=== PATIENT | female | born 1990 | race Caucasian/White ===

== ENCOUNTER → 2016-12-27 | Outpatient (CLI) | payer OTHER ==
[2016-12-29 14:50] LABS: CHLAMYDIA TRACH RNA*** NOT DETECTED (NOT DETECTED); GC (NEIS GONORRHOEAE)RNA** NOT DETECTED (NOT DETECTED)
== END | disposition home or self-care (01) ==
LOC: C.LABSPEC 17:37
PROVIDERS: ATTEND Obstetrics & Gynecology
DX: Z12.4 Encounter for screening for malignant neoplasm of cervix (principal)

== ENCOUNTER → 2016-12-27 | Outpatient (CLI) | payer OTHER | END | disposition home or self-care (01) | LOC: C.LAB1850 16:22 | PROVIDERS: ATTEND Obstetrics & Gynecology | DX: Z86.14 Personal history of Methicillin resistant Staphylococcus aureus infection (principal) ==

== ENCOUNTER → 2017-01-03 | Outpatient (CLI) | payer OTHER | END | disposition home or self-care (01) | LOC: C.LAB1850 15:54 | PROVIDERS: ATTEND Obstetrics & Gynecology | DX: Z86.14 Personal history of Methicillin resistant Staphylococcus aureus infection (principal) ==

== ENCOUNTER → 2017-04-24 | Outpatient (CLI) | payer OTHER | END | disposition home or self-care (01) | LOC: C.LABSPEC 17:32 | PROVIDERS: ATTEND Physician Assistant Medical | DX: S81.801A Unspecified open wound, right lower leg, initial encounter (principal); X58.XXXA Exposure to other specified factors, initial encounter ==

== ENCOUNTER 2019-09-30 08:18 | Inpatient (IN) ==
[2019-09-30] MEDS ORDERED: OXYTOCIN 30 UNITS/500 ML BAG IV PRN ×3 (09:25→17:44)
[2019-09-30] MEDS: LACTATED RINGER'S 1,000 ML IV PRN ×3 (09:32→15:51)
[2019-09-30] MEDS ORDERED: fentaNYL citrate 100 MCG/2 ML VIAL ONE (09:37)
[2019-09-30] MEDS ORDERED: ePHEDrine sulfate 50 MG/ML AMP ONE (09:37)
[2019-09-30] MEDS ORDERED: BUPIVACAINE 0.25% 30 ML VIAL ONE (09:37)
[2019-09-30] MEDS ORDERED: fentaNYL 2MCG/ML ROPIV 1.25MG/ML 100 ML BAG EPI ONE (09:38)
[2019-09-30 09:55] LABS: Hematocrit (blood only) 36.5 % (37-47); Hemoglobin 12.5 g/dL (12.0-16.0); Mean Corpuscular Hemoglobin 29.5 pg (25-34); Mean Corpuscular Volume 86.1 fL (80-100); Mean Platelet Volume 12.7 fL (7.4-10.4); Platelet Count 166 K/uL (130-400); RDW Coefficient of Variation 13.5 % (11.5-14.5); RDW Standard Deviation 42.4 fL (36.4-46.3); Red Blood Count 4.24 M/uL (4.2-5.4); White Blood Count 13.75 K/uL (4.8-10.8)
--- NOTE | 2019-09-30 10:07 | Anesthesiology Consultation ---
Date of Service September 30, 2019 Assessment & Plan Chart Review Chart Review: Acceptable Risk for Surgery, Patient NOT seen in Pre Admission Testing and Acceptable Risk for Labor Epidural ASA ASA2 Proposed Anesthesia Anesthesia Type: Labor Epidural and CSE History Height/Weight Height: 5 ft 7 in Weight: 107.048 kg Allergies Allergy/AdvReac Type Severity Reaction Status Date / Time nickel Allergy Intermediate hives Verified 09/27/19 16:24 Medications Home Medications Medication Instructions Recorded Confirmed Last Taken acetone (urine) test #50 08/01/19 09/27/19 Unknown blood sugar diagnostic #150 08/01/19 09/27/19 Unknown blood-glucose meter #1 08/01/19 09/27/19 Unknown lancets 33 gauge #150 08/01/19 09/27/19 Unknown docusate sodium [Colace] 100 mg PO DAILY 09/30/19 09/30/19 09/29/19 omeprazole magnesium [Prilosec OTC] 20 mg PO DAILY 09/30/19 09/30/19 09/29/19 ondansetron HCl [Zofran] 4 mg PO BID 09/30/19 09/30/19 09/29/19 vit no.[id number] 1 tab PO DAILY 09/30/19 09/30/19 09/29/19 [ Vitamin] Active Medications Generic Name Dose Route Start Last Admin Trade Name Freq PRN Reason Stop Dose Admin Lactated Ringer's 1,000 mls @ 125 mls/hr 09/30/19 09:25 09/30/19 09:32 Lr IV 10/02/19 09:24 999 mls/hr .Q8H PRN Administration L&D Protocol Protocol Past Medical History Medical History Abscess Blood blister Cellulitis of elbow (Inactive) Urinary frequency Exercise / Class Metabolic Activity II 4-5 Yardwork/Stairs/Walk up hill Past Family History Family History Uncle Lung cancer dad's brothers Cancer Grandmother (Maternal) Ovarian cancer Diabetes Father Prostate cancer Aunt Cancer Denies family history of Heart disease Myocardial infarction Breast cancer Colorectal cancer Stroke Past Surgical History Surgical History H/O wisdom tooth extraction No pertinent past surgical history Past Anesthesia History No Hx of Anesthesia Complications and No Family Hx of Anesthesia Complications History of PONV No Hx of PONV and No Hx of Motion Sickness Social History Smoking Status: Never smoker tobacco type: cigarettes Smoking cigarettes per day: 20-40 Hx Alcohol Use: No Hx Substance Use: No Physical Exam Vital Signs Last Vital Signs Temp 37.0 C 09/30/19 09:37 Pulse 78 09/30/19 10:00 Resp 18 09/30/19 09:37 BP 137/80 09/30/19 09:44 Pulse Ox 99 09/30/19 10:00 Testing Laboratory Results 09/30/19 09:42
[2019-09-30 10:12] LABS: Mean Corpuscular Hgb Conc 34.2 g/dL (32-36)
[2019-09-30] MEDS ORDERED: NALOXONE HCL 1 MG in SODIUM CHLORIDE 0.9% 1000ML 1,000 ML IV PRN (10:41)
[2019-09-30] MEDS ORDERED: DiphenhydrAMINE HCL 50 MG/ML VIAL IV PRN (10:41)
[2019-09-30] MEDS ORDERED: ePHEDrine sulfate 50 MG/ML AMP IV PRN (10:41)
[2019-09-30] MEDS ORDERED: ONDANSETRON INJ 2 MG/ML 2 ML VIAL IV PRN (10:41)
[2019-09-30] MEDS ORDERED: NALBUPHINE HCL INJ 10 MG/ML AMP IV PRN (10:41)
[2019-09-30] MEDS ORDERED: PROMETHAZINE HCL 25 MG in SODIUM CHLORIDE 0.9% 50 ML IV PRN (10:41)
[2019-09-30] MEDS ORDERED: fentaNYL 2MCG/ML ROPIV 1.25MG/ML 100 ML BAG EPI PRN (10:41)
[2019-09-30] MEDS ORDERED: NALOXONE HCL 0.4 MG/1 ML VIAL/CARP IV PRN (10:41)
--- NOTE | 2019-09-30 12:57 | Labor Progress Brief Note ---
Date of Service September 30, 2019 Subjective comfortable with epidural Assessment & Plan (1) Diet controlled gestational diabetes mellitus (GDM), antepartum: check blood sugar q 3 hrs. (2) Normal labor: continue current management. arom for thin mec. pitocin if indicated. Anticipate . Admission and Anticipated Discharge Date Admission Date: September 30, 2019 Physical Exam Constitutional: WD/WN, vitals as above Psychiatric: A+Ox3, euthymic affect Genitourinary: cx--8/100/-1 toco--qq4-5 efm--140s with mod variability, accels to 160s, no decels arom--green meconium Results & Data ([facility]) Vital Signs (Past 12 Hours) Vital Signs Temp Pulse Resp BP Pulse Ox 09/30/19 12:50 108 H 100 09/30/19 12:45 73 98 09/30/19 12:41 69 106/57 L 09/30/19 12:40 64 98 09/30/19 12:35 73 98 09/30/19 12:30 75 99 09/30/19 12:26 70 106/58 L 09/30/19 12:25 69 98 09/30/19 12:23 18 09/30/19 12:20 70 100 09/30/19 12:15 100 H 99 09/30/19 12:11 66 105/56 L 09/30/19 12:10 66 99 09/30/19 12:05 68 99 09/30/19 12:00 91 H 100 09/30/19 11:58 72 123/73 09/30/19 11:55 77 98 09/30/19 11:50 71 98 09/30/19 11:45 77 98 09/30/19 11:42 70 121/68 09/30/19 11:40 74 99 09/30/19 11:35 74 98 09/30/19 11:30 77 18 100 09/30/19 11:26 74 114/63 09/30/19 11:25 73 100 09/30/19 11:20 78 100 09/30/19 11:15 77 100 09/30/19 11:11 72 115/65 09/30/19 11:10 84 100 09/30/19 11:05 76 100 09/30/19 11:00 80 100 09/30/19 10:56 78 121/73 06/29/20 10:55 76 100 09/30/19 10:50 99 H 125/65 99 09/30/19 10:45 89 18 115/61 100 09/30/19 10:43 90 18 127/63 09/30/19 10:41 82 18 120/64 09/30/19 10:40 82 99 09/30/19 10:39 90 18 128/66 09/30/19 10:37 98 H 18 129/78 09/30/19 10:35 82 142/69 H 99 09/30/19 10:33 81 128/75 09/30/19 10:30 89 137/71 98 09/30/19 10:25 92 H 99 09/30/19 10:20 86 99 09/30/19 10:15 95 H 98 09/30/19 10:10 82 97 09/30/19 10:05 73 98 09/30/19 10:00 78 18 99 09/30/19 09:55 83 99 09/30/19 09:50 68 97 09/30/19 09:45 75 99 09/30/19 09:44 37.0 C 71 18 137/80 09/30/19 09:40 82 99 09/30/19 09:37 37.0 C 18 09/30/19 09:35 75 98 Coding Level of Care Code None Diagnoses Diet controlled gestational diabetes mellitus (GDM), antepartum O24.410 Normal labor O80; Z37.9
--- NOTE | 2019-09-30 15:38 | History & Physical Report ---
Date of Service September 30, 2019 Assessment & Plan (1) Diet controlled gestational diabetes mellitus (GDM), antepartum: monitor blood sugars q 3 hours. First sugar was ok. (2) 40 weeks gestation of : plan epidural per request. arom/pit as indicated. fetus category 1. anticipate . Admission and Anticipated Discharge Date Admission Date: September 30, 2019 History of Present Illness Chief Complaint: LATE ENTRY Primary Care Provider: Héctor Rivas MD pATIENT IS A 28YOWF g1 who presents to labor and delivery at 40 3/7 weeks for induction for GDM. Patient had a nelson placed last night. Nelson fell out at 1 1pm . contractions started at about 9pm last night. Was 7-9 min apart the whole time. Had emesis all night. no lof. no vb. FM. large ketones and +2 protein. Wants something for pain. Being treated for diet gdm. Last us AC 84% at 36 weeks. Insulin was not started. labs--B+/ab-/ri/rprnr/hepb-/hiv-/gc/ct-/gbs neg/ 16 week gtt 114/ 28 week gtt 136/failed 2 hr./ low risk panorama Allergies Allergy/AdvReac Type Severity Reaction Status Date / Time nickel Allergy Intermediate hives Verified 09/27/19 16:24 Home Medications Home Medications Medication Instructions Recorded Confirmed Type acetone (urine) test #50 ea 08/01/19 09/27/19 Rx blood sugar diagnostic #150 ea 08/01/19 09/27/19 Rx blood-glucose meter #1 ea 08/01/19 09/27/19 Rx lancets 33 gauge #150 08/01/19 09/27/19 Rx docusate sodium [Colace] 100 mg PO DAILY 09/30/19 09/30/19 History omeprazole magnesium [Prilosec OTC] 20 mg PO DAILY 09/30/19 09/30/19 History ondansetron HCl [Zofran] 4 mg PO BID 09/30/19 09/30/19 History vit no.[id number] 1 tab PO DAILY 09/30/19 09/30/19 History [ Vitamin] Patient History Medical History (Updated 09/30/19 @ 15:44 by Merari Machuca MD, FACOG) Abscess Blood blister Cellulitis of elbow (Inactive) MRSA (methicillin resistant Staphylococcus aureus) History of 2014 Urinary frequency Surgical History H/O wisdom tooth extraction No pertinent past surgical history Family History Uncle Lung cancer dad's brothers Cancer Grandmother (Maternal) Ovarian cancer Diabetes Father Prostate cancer Aunt Cancer Denies family history of Heart disease Myocardial infarction Breast cancer Colorectal cancer Stroke Social History Preferred Language: Kuwaiti Communication Ability: Effective Visual Impairment: No Limitations Hearing Ability: Normal Resident Care Spec Required: No Beliefs That Will Affect Care: None marital status: marital status details: Jason Bedoya (27) [phone] Current Living Situation: Spouse Current Living Situation Comment: with spouse and 1 dog current occupational status: employed current occupation: [employer] Other Information That Helps Us Care for You: No Feels Safe at Home: Yes Safety Concerns: Feels Safe At This Time Smoking Status: Never smoker Tobacco Type: cigarettes ; Age Started Using Tobacco: 13 ; Age Quit Using Tobacco: 22 ; packs per day: 1.5 ; Cigarettes Per Day: 20-40 ; Number of Years Since Quit: 6 ; Second Hand Exposure: No ; Hx Alcohol Use: No Hx Substance Use: No Childhood Exposure to Second-Hand Smoke: No caffeine: No Dental Care, Regularly: Yes Physical Activity Frequency: 1-2 Times per Week Seatbelt Use: always Sunscreen Use: Yes OB History g1--current [employer] History no stds, no abnl paps Review of Systems All systems reviewed & are unremarkable except as noted in HPI & below Physical Exam Constitutional: WD/WN, vitals as above Psychiatric: A+Ox3, euthymic affect Genitourinary: cx--6/90/0 toco--q7-9 min efm--category one. Results & Data ([facility]) Vital Signs (Past 12 Hours) Vital Signs Temp Pulse Resp BP Pulse Ox 09/30/19 15:30 85 99 09/30/19 15:26 95 H 99/52 L 09/30/19 15:25 80 98 09/30/19 15:20 84 99 09/30/19 15:15 78 98 09/30/19 15:12 80 106/58 L 09/30/19 15:10 79 99 09/30/19 15:05 84 99 09/30/19 15:00 36.8 C 81 18 100 09/30/19 14:58 85 104/52 L 09/30/19 14:55 92 H 99 09/30/19 14:50 77 99 09/30/19 14:45 74 99 09/30/19 14:41 73 111/52 L 09/30/19 14:40 73 99 09/30/19 14:35 89 99 09/30/19 14:30 83 18 100 09/30/19 14:27 82 107/63 09/30/19 14:25 83 99 09/30/19 14:20 99 H 99 09/30/19 14:15 96 H 98 09/30/19 14:11 87 123/71 09/30/19 14:10 84 98 09/30/19 14:05 92 H 98 09/30/19 14:00 93 H 18 99 09/30/19 13:56 83 120/71 09/30/19 13:55 88 98 09/30/19 13:50 90 98 09/30/19 13:45 85 98 09/30/19 13:42 92 H 124/78 09/30/19 13:40 96 H 100 09/30/19 13:35 78 98 09/30/19 13:30 83 18 98 09/30/19 13:27 79 121/68 09/30/19 13:25 85 98 09/30/19 13:20 84 100 09/30/19 13:15 81 100 09/30/19 13:11 86 130/78 09/30/19 13:10 87 100 09/30/19 13:05 88 100 09/30/19 13:00 37.0 C 84 18 100 09/30/19 12:58 82 127/70 09/30/19 12:55 107 H 100 09/30/19 12:50 108 H 100 09/30/19 12:45 73 98 09/30/19 12:41 69 106/57 L 09/30/19 12:40 64 98 09/30/19 12:35 73 98 09/30/19 12:30 75 18 99 09/30/19 12:26 70 106/58 L 09/30/19 12:25 69 98 09/30/19 12:23 18 09/30/19 12:20 70 100 09/30/19 12:15 100 H 99 09/30/19 12:11 66 105/56 L 09/30/19 12:10 66 99 09/30/19 12:05 68 99 09/30/19 12:00 91 H 18 100 09/30/19 11:58 72 123/73 09/30/19 11:55 77 98 09/30/19 11:50 71 98 09/30/19 11:45 77 98 09/30/19 11:42 70 121/68 09/30/19 11:40 74 99 09/30/19 11:35 74 98 09/30/19 11:30 77 18 100 09/30/19 11:26 74 114/63 09/30/19 11:25 73 100 09/30/19 11:20 78 100 09/30/19 11:15 77 100 09/30/19 11:11 72 115/65 09/30/19 11:10 84 100 09/30/19 11:05 76 100 09/30/19 11:00 80 100 09/30/19 10:56 78 121/73 09/30/19 10:55 76 100 09/30/19 10:50 99 H 125/65 99 09/30/19 10:45 89 18 115/61 100 09/30/19 10:43 90 18 127/63 09/30/19 10:41 82 18 120/64 09/30/19 10:40 82 99 09/30/19 10:39 90 18 128/66 09/30/19 10:37 98 H 18 129/78 09/30/19 10:35 82 142/69 H 99 09/30/19 10:33 81 128/75 09/30/19 10:30 89 137/71 98 09/30/19 10:25 92 H 99 09/30/19 10:20 86 99 09/30/19 10:15 95 H 98 09/30/19 10:10 82 97 09/30/19 10:05 73 98 09/30/19 10:00 78 18 99 09/30/19 09:55 83 99 09/30/19 09:50 68 97 09/30/19 09:45 75 99 09/30/19 09:44 37.0 C 71 18 137/80 09/30/19 09:40 82 99 09/30/19 09:37 37.0 C 18 09/30/19 09:35 75 98 Coding Level of Care Code None Diagnoses Diet controlled gestational diabetes mellitus (GDM), antepartum O24.410 40 weeks gestation of Z3A.40
[2019-09-30] MEDS ORDERED: ACETAMINOPHEN 325 MG TAB PO PRN (17:15)
[2019-09-30] MEDS ORDERED: OXYCODONE/ACETAMINOPHEN 5mg/325mg TAB PO PRN (17:15)
--- NOTE | 2019-09-30 17:19 | Delivery Summary ---
Vaginal Delivery Summary Date of Service September 30, 2019 Vaginal Delivery Summary Pre-operative Diagnosis: at 40 weeks diet controlled gdm Post-operative Diagnosis: same meconium Procedure: nelson bulb for cervical ripening epidural arom pitocin augementation second degree laceration and repair EBL: 350cc Anesthesia: epidural Procedure: The patient pushed for 40 min to deliver a viable female in virginie position. The rest of the infant was then delivered without difficulty. The baby was vigorous. The nose and mouth were bulb suctioned and the infant was placed in the maternal abdomen for drying and attention. Cord was clamped and cut at one minute of life. Cord blood and segment obtained. Placenta delivered spontaneous, intact with a three vessel cord. Cervix/sulci/rectum were intact. A second degree perineal laceration was repaired in the normal standard fashion. Hemostasis obtained with dilute pitocin and fundal massage. Apgars were 8/9. Mother and baby doing well at the end of the delivery.
[2019-09-30] MEDS ORDERED: bisacodyL 10 MG SUPP PR PRN (17:44)
[2019-09-30] MEDS ORDERED: DIPHTHERIA/TETANUS/PERTUSSIS 0.5 ML SYR/VIAL IM ONE (17:44)
[2019-09-30] MEDS ORDERED: SUPERCREAM 0.870% 15 GM JAR EXT PRN (17:44)
[2019-09-30] MEDS ORDERED: HYDROCORTISONE ACETATE 25 MG SUPP PR PRN (17:44)
[2019-09-30] MEDS ORDERED: BENZOCAINE 20% AER SPR 82.5 GM CAN EXT PRN (17:44)
--- NOTE | 2019-09-30 18:17 | Anesthesiology Progress Note ---
Date of Service September 30, 2019 Anesthesia Post Procedure Vital Signs Vital Signs: Temp Pulse Resp BP Pulse Ox 09/30/19 18:11 84 122/62 09/30/19 18:00 18 09/30/19 17:56 90 124/62 09/30/19 17:45 18 09/30/19 17:41 90 127/61 09/30/19 17:30 18 09/30/19 17:26 99 H 128/60 09/30/19 17:15 37.0 C 18 09/30/19 17:11 37.0 C 105 H 132/67 09/30/19 16:58 18 09/30/19 16:55 143 H 89 L 09/30/19 16:50 125 H 98 09/30/19 16:45 106 H 92 09/30/19 16:42 116 H 138/64 09/30/19 16:41 106 H 86 L 09/30/19 16:40 103 H 96 09/30/19 16:35 104 H 100 09/30/19 16:30 103 H 18 100 09/30/19 16:26 107 H 144/79 H 09/30/19 16:25 106 H 100 09/30/19 16:20 106 H 100 09/30/19 16:15 120 H 100 09/30/19 16:10 109 H 100 09/30/19 16:05 82 99 09/30/19 16:00 81 18 100 09/30/19 15:57 79 103/57 L 09/30/19 15:55 88 100 09/30/19 15:50 90 100 09/30/19 15:45 100 H 100 09/30/19 15:41 90 103/60 09/30/19 15:40 87 99 09/30/19 15:35 77 99 09/30/19 15:30 85 18 99 09/30/19 15:26 95 H 99/52 L 09/30/19 15:25 80 98 09/30/19 15:20 84 99 09/30/19 15:15 78 98 09/30/19 15:12 80 106/58 L 09/30/19 15:10 79 99 09/30/19 15:05 84 99 09/30/19 15:00 36.8 C 81 18 100 09/30/19 14:58 85 104/52 L 09/30/19 14:55 92 H 99 09/30/19 14:50 77 99 09/30/19 14:45 74 99 09/30/19 14:41 73 111/52 L 09/30/19 14:40 73 99 09/30/19 14:35 89 99 09/30/19 14:30 83 18 100 09/30/19 14:27 82 107/63 09/30/19 14:25 83 99 09/30/19 14:20 99 H 99 09/30/19 14:15 96 H 98 09/30/19 14:11 87 123/71 09/30/19 14:10 84 98 09/30/19 14:05 92 H 98 09/30/19 14:00 93 H 18 99 09/30/19 13:56 83 120/71 09/30/19 13:55 88 98 09/30/19 13:50 90 98 09/30/19 13:45 85 98 09/30/19 13:42 92 H 124/78 09/30/19 13:40 96 H 100 09/30/19 13:35 78 98 09/30/19 13:30 83 18 98 09/30/19 13:27 79 121/68 09/30/19 13:25 85 98 09/30/19 13:20 84 100 09/30/19 13:15 81 100 09/30/19 13:11 86 130/78 09/30/19 13:10 87 100 09/30/19 13:05 88 100 09/30/19 13:00 37.0 C 84 18 100 09/30/19 12:58 82 127/70 09/30/19 12:55 107 H 100 09/30/19 12:50 108 H 100 09/30/19 12:45 73 98 09/30/19 12:41 69 106/57 L 09/30/19 12:40 64 98 09/30/19 12:35 73 98 09/30/19 12:30 75 18 99 09/30/19 12:26 70 106/58 L 09/30/19 12:25 69 98 09/30/19 12:23 18 09/30/19 12:20 70 100 09/30/19 12:15 100 H 99 09/30/19 12:11 66 105/56 L 09/30/19 12:10 66 99 09/30/19 12:05 68 99 09/30/19 12:00 91 H 18 100 09/30/19 11:58 72 123/73 09/30/19 11:55 77 98 09/30/19 11:50 71 98 09/30/19 11:45 77 98 09/30/19 11:42 70 121/68 09/30/19 11:40 74 99 09/30/19 11:35 74 98 09/30/19 11:30 77 18 100 09/30/19 11:26 74 114/63 09/30/19 11:25 73 100 09/30/19 11:20 78 100 09/30/19 11:15 77 100 09/30/19 11:11 72 115/65 09/30/19 11:10 84 100 09/30/19 11:05 76 100 09/30/19 11:00 80 100 09/30/19 10:56 78 121/73 09/30/19 10:55 76 100 09/30/19 10:50 99 H 125/65 99 09/30/19 10:45 89 18 115/61 100 09/30/19 10:43 90 18 127/63 09/30/19 10:41 82 18 120/64 09/30/19 10:40 82 99 09/30/19 10:39 90 18 128/66 09/30/19 10:37 98 H 18 129/78 09/30/19 10:35 82 142/69 H 99 09/30/19 10:33 81 128/75 09/30/19 10:30 89 137/71 98 09/30/19 10:25 92 H 99 09/30/19 10:20 86 99 09/30/19 10:15 95 H 98 09/30/19 10:10 82 97 09/30/19 10:05 73 98 09/30/19 10:00 78 18 99 09/30/19 09:55 83 99 09/30/19 09:50 68 97 09/30/19 09:45 75 99 09/30/19 09:44 37.0 C 71 18 137/80 09/30/19 09:40 82 99 09/30/19 09:37 37.0 C 18 09/30/19 09:35 75 98 Pain Intensity Abdomen: Pain Intensity: 0 Transfer of Care Handoff Completed per policy Notes Mental Status: alert / awake / arousable Nausea / Vomiting: adequately controlled Pain: adequately controlled Airway Patency, RR, SpO2: stable & adequate BP & HR: stable & adequate Hydration State: stable & adequate Neuraxial Anesthesia: was administered and sensory block is resolving Anesthetic Complications: no major complications apparent Notes: epidural catheter was removed with tip intact
[2019-09-30] MEDS: DOCUSATE SODIUM 100 MG CAP PO SCH (21:14)
[2019-09-30] MEDS: IBUPROFEN 600 MG TAB PO PRN (21:31)
[2019-10-01] MEDS: IBUPROFEN 600 MG TAB PO PRN ×3 (04:46→15:45)
[2019-10-01 06:40] LABS: Hematocrit (blood only) 32.3 % (37-47); Hemoglobin 10.6 g/dL (12.0-16.0)
--- NOTE | 2019-10-01 06:58 | Obstetrical Progress Note ---
Date of Service October 01, 2019 Assessment & Plan (1) Status post vaginal delivery: Doing well. Routine pp care. Subjective Ambulation: ambulating normally Voiding: no voiding problems Passing Gas:: Yes Diet Tolerance:: regular diet Lochia:: Small Feeding Type:: breast feeding Tolerating pain in her bottom. Physical Exam Constitutional WD/WN, vitals as above Gastrointestinal (Abdomen) soft, nt ff/ nt at u Psychiatric A+Ox3, euthymic affect Results & Data ([facility]) Vital Signs (Past 12 Hours) Vital Signs Temp Pulse Resp BP Pulse Ox 10/01/19 04:45 36.5 C 84 17 137/86 99 10/01/19 00:05 36.8 C 71 16 134/84 98 09/30/19 19:30 36.3 C L 94 H 18 120/77 99
[2019-10-01] MEDS: PRENATAL VITAMIN 1 TAB PO SCH (08:28)
[2019-10-01] MEDS: DOCUSATE SODIUM 100 MG CAP PO SCH ×2 (08:28→20:17)
[2019-10-01] MEDS ORDERED: bisacodyL 5 MG TABEC PO ONE (08:34)
[2019-10-01] MEDS: bisacodyL 5 MG TABEC PO SCH ×2 (08:35→20:18)
[2019-10-02] MEDS: IBUPROFEN 600 MG TAB PO PRN ×2 (01:05→08:22)
--- NOTE | 2019-10-02 07:47 | Obstetrical Progress Note ---
Date of Service October 02, 2019 Assessment & Plan (1) Status post vaginal delivery: stable for d/c home, instructions reviewed. f/u 6wks pp check. rh pos, ri. Day #:: 2 Subjective Ambulation: ambulating normally Voiding: no voiding problems Diet Tolerance:: regular diet Lochia:: Small Feeding Type:: bottle feeding denies pain issues. ready to go home Physical Exam Constitutional WD/WN, vitals as above Respiratory normal respiratory effort, lungs clear to auscultation Cardiovascular Rate/Rhythm: regular rate and regular rhythm Gastrointestinal (Abdomen) Percussion/Palpation: abdomen soft; abdomen nontender ff 3 down nt Psychiatric A+Ox3, euthymic affect Results & Data ([facility]) Vital Signs (Past 12 Hours) Vital Signs Temp Pulse Resp BP Pulse Ox 10/01/19 23:50 97.7 F 91 H 20 125/82 99
[2019-10-02] MEDS: DOCUSATE SODIUM 100 MG CAP PO SCH (08:22)
[2019-10-02] MEDS: PRENATAL VITAMIN 1 TAB PO SCH (08:26)
== END 2019-10-02 15:10 | disposition home or self-care (01) | DRG 807 ==
LOC: 4S1 09:04 → 4S2 18:56

== ENCOUNTER 2021-07-01 09:37 | Inpatient (IN) ==
[2021-07-01 10:28] LABS: Basophils # (auto) 0.01 K/uL (0-0.2); Basophils % (auto) 0.1 %; Eosinophils # (auto) 0.02 K/uL (0-0.5); Eosinophils % (auto) 0.2 %; Hematocrit (blood only) 36.3 % (37-47); Hemoglobin 13.2 g/dL (12.0-16.0); Immature Granulocytes # (auto) 0.02 K/uL (0.00-0.02); Immature Granulocytes % (auto) 0.2 %; Lymphocytes # (auto) 1.66 K/uL (1.2-3.4); Lymphocytes % (auto) 18.7 %; Mean Corpuscular Hemoglobin 31.8 pg (25-34); Mean Corpuscular Hgb Conc 36.4 g/dL (32-36); Mean Corpuscular Volume 87.5 fL (80-100); Mean Platelet Volume 12.9 fL (7.4-10.4); Monocytes # (auto) 0.47 K/uL (0.11-0.59); Monocytes % (auto) 5.3 %; Neutrophils # (auto) 6.69 K/uL (1.4-6.5); Neutrophils % (auto) 75.5 %; Platelet Count 133 K/uL (130-400); RDW Coefficient of Variation 12.8 % (11.5-14.5); RDW Standard Deviation 41.1 fL (36.4-46.3); Red Blood Count 4.15 M/uL (4.2-5.4); White Blood Count 8.87 K/uL (4.8-10.8)
[2021-07-01 10:59] LABS: Albumin Globulin Ratio 1.2 (0.9-2); Albumin Level 3.4 gm/dl (3.4-5.0); BUN Creatinine Ratio 25.3 (10-20); Bilirubin,Total 0.2 mg/dl (0.2-1.0); Calcium 9.2 mg/dl (8.5-10.1); Est GFR (African American) 98.8 ml/min; Est GFR (Non-African American) 85.3 ml/min; Globulin 2.9 gm/dl (2.5-4.0); Total Protein 6.3 gm/dl (6.0-8.3)
[2021-07-01 11:15] LABS: Protein Creatinine Ratio Urine 0.2 (0-0.2); Total Protein Urine Random 24.1 mg/dl (0-11.9)
[2021-07-01] MEDS ORDERED: OXYTOCIN 30 UNITS/500 ML BAG IV PRN ×4 (12:11→18:07)
[2021-07-01] MEDS ORDERED: SODIUM CHLORIDE 0.9% 1000ML 1,000 ML IV PRN (12:14)
[2021-07-01] MEDS ORDERED: DEXTROSE 5% 1,000 ML IV PRN (12:14)
[2021-07-01] MEDS ORDERED: DEXTROSE 50% 50 ML SYRINGE IV PRN ×2 (12:14→12:30)
[2021-07-01] MEDS ORDERED: INSULIN REGULAR 250 UNITS in SODIUM CHLORIDE 0.9% 247.5 ML IV PRN (12:14)
--- NOTE | 2021-07-01 12:22 | History & Physical Report ---
Date of Service July 01, 2021 Assessment & Plan (1) 38 weeks gestation of : Plan: Admit, routine labs Epidural with patient request AROM after Anticipate spontaneous vaginal delivery (2) Class 1 obesity due to excess calories in adult: (3) Insulin controlled gestational diabetes mellitus (GDM) in third trimester: Plan: Insulin protocol ordered, every hour glucose checks Didnt take insulin last night Ate pancakes and syrup on way to hospital Last EFW 06/03/2021 2809g 76%tile, AC 95%tile (4) Elevated BP without diagnosis of hypertension: Plan: Elevated blood pressure x2, current blood pressure 135/74. PIH labs within normal limits, protein to creatinine ratio was 0.2 If elevated blood pressures greater than 4 hours apart will meet criteria for gestational hypertension History of Present Illness Chief Complaint: Contractions Primary Care Provider: Héctor Rivas MD Patient is a 30-year-old -0-0-1 at 38 weeks and 6 days dated by last menstrual period consistent with 8-week ultrasound who presents to labor and delivery for complaint of contractions every 10 minutes that have now gotten closer together. Contractions started at 3 AM. Denies leaking of fluid or vaginal bleeding. Notes good movement. Denies headache, blurry vision, right upper quadrant or epigastric pain. Otherwise feeling well. complications include insulin-dependent gestational diabetes controlled with Lantus 10 units before bedtime. Other complications include class I obesity. On presentation patient was noted to have elevated blood pressure x2. PIH labs were normal Patient was 3 cm dilated on presentation, changed to 4 cm after 1 hour. Allergies Allergy/AdvReac Type Severity Reaction Status Date / Time nickel Allergy Intermediate hives Verified 05/21/20 08:51 Home Medications Medication Instructions Recorded Confirmed Type multivitamin with minerals-folic 1 tab PO DAILY 05/08/20 07/01/21 History acid 66.7 mcg-biotin 1,000 mcg tablet (Hair,Skin and Nails (folic acid-biotin)) docusate sodium 100 mg capsule 300 mg PO DAILY 07/01/21 07/01/21 History (Colace) insulin glargine 100 unit/mL 5 unit SUBCUT HS 07/01/21 07/01/21 History subcutaneous solution (Lantus U-100 Insulin) ondansetron HCl 8 mg tablet 8 mg PO Q12H PRN 07/01/21 07/01/21 History Patient History Medical History Diet controlled gestational diabetes mellitus (GDM), antepartum MRSA (methicillin resistant Staphylococcus aureus) History of 2014 Surgical History H/O wisdom tooth extraction Family History Uncle Lung cancer dad's brothers Cancer Grandmother (Maternal) Ovarian cancer Diabetes Father Prostate cancer Aunt Cancer Denies family history of Heart disease Myocardial infarction Breast cancer Colorectal cancer Stroke Social History Smoking Status: Former smoker Age Started Using Tobacco: 13; Age Quit Using Tobacco: 22; packs per day: 1.5; Years Smoked: 10; Cigarettes Per Day: 20-40; Number of Years Since Quit: 6; Second Hand Exposure: No; Hx Alcohol Use: No Hx Substance Use: No Preferred Language: Nepali Communication Ability: Effective Visual Impairment: No Limitations Hearing Ability: Normal College Admissions Counselor Required: No Beliefs That Will Affect Care: None marital status: marital status details: Jason Bedoya (27) [phone] Current Living Situation: Spouse Current Living Situation Comment: with spouse and 1 dog current occupational status: employed current occupation: [employer] [facility] Other Information That Helps Us Care for You: No Feels Safe at Home: Yes Safety Concerns: Feels Safe At This Time Childhood Exposure to Second-Hand Smoke: No caffeine: No Dental Care, Regularly: Yes Physical Activity Frequency: 1-2 Times per Week Seatbelt Use: always Sunscreen Use: Yes Assistive Devices: Glasses OB History Review of Systems All systems reviewed & are unremarkable except as noted in HPI & below Physical Exam Constitutional: WD/WN, vitals as above Respiratory: normal respiratory effort, lungs clear to auscultation Cardiovascular: RRR, no murmur, no edema Gastrointestinal (Abdomen): normal bowel sounds, soft, nontender, no hepatosplenomegaly Genitourinary: OB Exam Abdomen: + fundal height, + heart tones and + vertex Cx 4/80/-2 check by RN Results & Data ([facility]) Vital Signs (Past 12 Hours) Vital Signs Temp Pulse Resp BP 07/01/21 11:59 88 135/74 07/01/21 11:42 78 131/80 07/01/21 11:27 88 129/78 07/01/21 11:14 84 141/86 H 07/01/21 10:57 90 126/79 07/01/21 10:42 103 H 130/88 07/01/21 10:28 100 H 132/87 07/01/21 10:13 93 H 138/91 07/01/21 09:56 37 C 22 07/01/21 09:46 96 H 156/90 H Monitoring External Monitor FHT: baseline 150-155, mod variability, +accels, no decels, cat I Tocodynamometer [place]: q4-5 min
[2021-07-01] MEDS ORDERED: CARBOHYDRATES FOR HYPOGLYCEMIA PO PRN (12:30)
[2021-07-01] MEDS ORDERED: GLUCAGON FOR INJ 1 MG VIAL IM PRN (12:30)
[2021-07-01] MEDS ORDERED: GLUCOSE 40% GEL 15 GM TUBE PO PRN (12:30)
[2021-07-01] MEDS ORDERED: GLUCOSE 10 TABS/TUBE PO PRN (12:30)
[2021-07-01] MEDS: LACTATED RINGER'S 1,000 ML IV PRN ×2 (12:38→15:35)
--- NOTE | 2021-07-01 12:45 | History & Physical Report ---
Date of Service July 01, 2021 Assessment & Plan (1) 38 weeks gestation of : Plan: Admit, routine labs Epidural with patient request AROM after Anticipate spontaneous vaginal delivery (2) Class 1 obesity due to excess calories in adult: (3) Insulin controlled gestational diabetes mellitus (GDM) in third trimester: Plan: Insulin protocol ordered, every hour glucose checks Didnt take insulin last night Ate pancakes and syrup on way to hospital Last EFW 06/03/2021 2809g 76%tile, AC 95%tile (4) Elevated BP without diagnosis of hypertension: Plan: Elevated blood pressure x2, current blood pressure 135/74. PIH labs within normal limits, protein to creatinine ratio was 0.2 If elevated blood pressures greater than 4 hours apart will meet criteria for gestational hypertension Admission and Anticipated Discharge Date Admission Date: July 01, 2021 History of Present Illness Primary Care Provider: Héctor Rivas MD Patient is a 30-year-old -0-0-1 at 38 weeks and 6 days dated by last menstrual period consistent with 8-week ultrasound who presents to labor and delivery for complaint of contractions every 10 minutes that have now gotten closer together. Contractions started at 3 AM. Denies leaking of fluid or vaginal bleeding. Notes good movement. Denies headache, blurry vision, right upper quadrant or epigastric pain. Otherwise feeling well. complications include insulin-dependent gestational diabetes controlled with Lantus 10 units before bedtime. Other complications include class I obesity. On presentation patient was noted to have elevated blood pressure x2. PIH labs were normal Patient was 3 cm dilated on presentation, changed to 4 cm after 1 hour. Allergies Allergy/AdvReac Type Severity Reaction Status Date / Time nickel Allergy Intermediate hives Verified 05/21/20 08:51 Home Medications Medication Instructions Recorded Confirmed Type multivitamin with minerals-folic 1 tab PO DAILY 05/08/20 07/01/21 History acid 66.7 mcg-biotin 1,000 mcg tablet (Hair,Skin and Nails (folic acid-biotin)) docusate sodium 100 mg capsule 300 mg PO DAILY 07/01/21 07/01/21 History (Colace) insulin glargine 100 unit/mL 5 unit SUBCUT HS 07/01/21 07/01/21 History subcutaneous solution (Lantus U-100 Insulin) ondansetron HCl 8 mg tablet 8 mg PO Q12H PRN 07/01/21 07/01/21 History Patient History Medical History Diet controlled gestational diabetes mellitus (GDM), antepartum MRSA (methicillin resistant Staphylococcus aureus) History of 2013 Surgical History H/O wisdom tooth extraction Family History Uncle Lung cancer dad's brothers Cancer Grandmother (Maternal) Ovarian cancer Diabetes Father Prostate cancer Aunt Cancer Denies family history of Heart disease Myocardial infarction Breast cancer Colorectal cancer Stroke Social History Smoking Status: Former smoker Age Started Using Tobacco: 13; Age Quit Using Tobacco: 22; packs per day: 1.5; Years Smoked: 10; Cigarettes Per Day: 20-40; Number of Years Since Quit: 6; Second Hand Exposure: No; Hx Alcohol Use: No Hx Substance Use: No Preferred Language: Tongan Communication Ability: Effective Visual Impairment: No Limitations Hearing Ability: Normal Medicaid Biller Required: No Beliefs That Will Affect Care: None marital status: marital status details: Jason Bedoya (27) [phone] Current Living Situation: Spouse Current Living Situation Comment: with spouse and 1 dog current occupational status: employed 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 Other Information That Helps Us Care for You: No Feels Safe at Home: Yes Safety Concerns: Feels Safe At This Time Childhood Exposure to Second-Hand Smoke: No caffeine: No Dental Care, Regularly: Yes Physical Activity Frequency: 1-2 Times per Week Seatbelt Use: always Sunscreen Use: Yes Assistive Devices: Glasses Physical Exam Constitutional: WD/WN, vitals as above Respiratory: normal respiratory effort, lungs clear to auscultation Cardiovascular: RRR, no murmur, no edema Gastrointestinal (Abdomen): normal bowel sounds, soft, nontender, no hepatosplenomegaly Genitourinary: OB Exam Abdomen: + fundal height, + heart tones and + vertex US bedside-cephalic Results & Data ([facility]) Vital Signs (Past 12 Hours) Vital Signs Temp Pulse Resp BP 07/01/21 11:59 88 135/74 07/01/21 11:42 78 131/80 07/01/21 11:27 88 129/78 07/01/21 11:14 84 141/86 H 07/01/21 10:57 90 126/79 07/01/21 10:42 103 H 130/88 07/01/21 10:28 100 H 132/87 07/01/21 10:13 93 H 138/91 07/01/21 09:56 37 C 22 07/01/21 09:46 96 H 156/90 H Monitoring External Monitor FHT: baseline 150-155, mod variability, +accels, no decels, Cat I tracing Tocodynamometer Q 4-5 min
[2021-07-01] MEDS ORDERED: ePHEDrine sulfate 50 MG/ML AMP ONE (14:54)
[2021-07-01] MEDS ORDERED: fentaNYL citrate 100 MCG/2 ML VIAL ONE (14:54)
[2021-07-01] MEDS ORDERED: fentaNYL 2MCG/ML ROPIVACAINE 1.25MG/ML 100 ML BAG EPI ONE (14:55)
[2021-07-01] MEDS ORDERED: BUPIVACAINE 0.25% 30 ML VIAL ONE (14:55)
[2021-07-01] MEDS ORDERED: SODIUM CHLORIDE 0.9% INJ 10 ML VIAL ONE (14:55)
--- NOTE | 2021-07-01 14:56 | Labor Progress Brief Note ---
Date of Service July 01, 2021 Subjective Doing well, wants epidural after AROM Assessment & Plan (1) 38 weeks gestation of : Plan: Epidural for patient Anticipate spontaneous vaginal delivery (2) Class 1 obesity due to excess calories in adult: (3) Insulin controlled gestational diabetes mellitus (GDM) in third trimester: Plan: Insulin protocol ordered, every hour glucose checks Last EFW 06/03/2021 2809g 76%tile, AC 95%tile (4) Elevated BP without diagnosis of hypertension: Plan: Elevated blood pressure x2, current blood pressure 127/80. PIH labs within normal limits, protein to creatinine ratio was 0.2 If elevated blood pressures greater than 4 hours apart will meet criteria for gestational hypertension Admission and Anticipated Discharge Date Admission Date: July 01, 2021 Physical Exam Physical Exam: FHT:baseline 135, mod variability, +accels, no decles, cat I [place]:q 10 min Cx: /-1 AROM at 1451 moderate clear fluid, no cord felt Results & Data ([facility]) Vital Signs (Past 12 Hours) Vital Signs Temp Pulse Resp BP 07/01/21 14:34 96 H 127/80 07/01/21 13:23 37.0 C 96 H 20 139/81 07/01/21 11:59 88 135/74 07/01/21 11:42 78 131/80 07/01/21 11:27 88 129/78 07/01/21 11:14 84 141/86 H 07/01/21 10:57 90 126/79 07/01/21 10:42 103 H 130/88 07/01/21 10:28 100 H 132/87 07/01/21 10:13 93 H 138/91 07/01/21 09:56 37 C 22 07/01/21 09:46 96 H 156/90 H
--- NOTE | 2021-07-01 15:26 | Anesthesiology Consultation ---
Date of Service July 01, 2021 Assessment & Plan (1) Encounter for pre-operative examination: Chart Review Chart Review: Acceptable Risk for Labor Epidural History Height/Weight Height: 5 ft 8 in Weight: 110.677 kg Allergies Allergy/AdvReac Type Severity Reaction Status Date / Time nickel Allergy Intermediate hives Verified 05/21/20 08:51 Medications Home Medications Medication Instructions Recorded Confirmed Last Taken multivitamin with minerals-folic 1 tab PO DAILY 05/08/20 07/01/21 06/30/21 22:00 acid 66.7 mcg-biotin 1,000 mcg tablet (Hair,Skin and Nails (folic acid-biotin)) docusate sodium 100 mg capsule 300 mg PO DAILY 07/01/21 07/01/21 06/30/21 22:00 (Colace) insulin glargine 100 unit/mL 5 unit SUBCUT HS 07/01/21 07/01/21 06/29/21 22:00 subcutaneous solution (Lantus U-100 Insulin) ondansetron HCl 8 mg tablet 8 mg PO Q12H PRN 07/01/21 07/01/21 07/01/21 08:00 Active Medications Generic Name Dose Route Start Last Admin Trade Name Freq PRN Reason Stop Dose Admin Lactated Ringer's 1,000 mls @ 125 mls/hr 07/01/21 12:11 07/01/21 14:50 Lr IV 07/03/21 12:10 999 mls/hr .Q8H PRN Infusion L&D Protocol Protocol Sodium Chloride 1,000 mls @ 100 mls/hr 07/01/21 12:14 07/01/21 14:21 Nss 1000ml IV 07/31/21 12:13 0 mls/hr .Q10H PRN Infusion BSG 141 mg/dL or above Protocol Dextrose 1,000 mls @ 100 mls/hr 07/01/21 12:14 07/01/21 14:20 D5w IV 07/31/21 12:13 75 mls/hr .Q10H PRN Infusion BSG 180 or below Protocol Insulin Human Regular 250 250 mls @ 1 mls/hr 07/01/21 12:14 07/01/21 15:15 units/ Sodium Chloride IV 07/31/21 12:13 1 units/hr .Q24H PRN 1 mls/hr BSG 80mg/dL or ABOVE Titration Protocol 1 UNITS/HR NPO Last Intake of Fluids Comment: Sips Past Medical History Medical History Diet controlled gestational diabetes mellitus (GDM), antepartum MRSA (methicillin resistant Staphylococcus aureus) History of 2013 Past Family History Family History Uncle Lung cancer dad's brothers Cancer Grandmother (Maternal) Ovarian cancer Diabetes Father Prostate cancer Aunt Cancer Denies family history of Heart disease Myocardial infarction Breast cancer Colorectal cancer Stroke Past Surgical History Surgical History H/O wisdom tooth extraction Social History Smoking Status: Former smoker tobacco type: cigarettes Smoking cigarettes per day: 20-40 Hx Alcohol Use: No Hx Substance Use: No Physical Exam Vital Signs Last Vital Signs Temp 36.6 C 07/01/21 14:54 Pulse 94 H 07/01/21 15:19 Resp 20 07/01/21 14:54 BP 136/83 07/01/21 14:55 Pulse Ox 98 07/01/21 15:19 Testing Laboratory Results 07/01/21 10:13 07/01/21 10:13 Blood Type B Positive 07/01/21 10:16 Antibody Screen NEGATIVE 07/01/21 10:16 07/01/21 07/01/21 07/01/21 15:13 14:15 13:15 POC Glucose 113 H 119 H 142 H 07/01/21 12:35 POC Glucose 145 H
[2021-07-01] MEDS ORDERED: ONDANSETRON INJ 2 MG/ML 2 ML VIAL IV PRN (15:49)
[2021-07-01] MEDS ORDERED: NALOXONE HCL 1 MG in SODIUM CHLORIDE 0.9% 1000ML 1,000 ML IV PRN (15:49)
[2021-07-01] MEDS ORDERED: fentaNYL 2MCG/ML ROPIVACAINE 1.25MG/ML 100 ML BAG EPI PRN (15:49)
[2021-07-01] MEDS ORDERED: ePHEDrine sulfate 50 MG/ML AMP IV PRN (15:49)
[2021-07-01] MEDS ORDERED: NALOXONE HCL 0.4 MG/1 ML VIAL/CARP IV PRN (15:49)
--- NOTE | 2021-07-01 16:51 | Labor Progress Brief Note ---
Date of Service July 01, 2021 Subjective Doing well on epidural Hypotonic uterine contractions Assessment & Plan (1) 38 weeks gestation of : Plan: Start pit for hypotonic uterine contractions Anticipate spontaneous vaginal delivery (2) Class 1 obesity due to excess calories in adult: (3) Insulin controlled gestational diabetes mellitus (GDM) in third trimester: Plan: Insulin protocol ordered, every hour glucose checks Last EFW 06/03/2021 2809g 76%tile, AC 95%tile (4) Elevated BP without diagnosis of hypertension: Plan: Elevated blood pressure x2, current blood pressure 112/71. PIH labs within normal limits, protein to creatinine ratio was 0.2 If elevated blood pressures greater than 4 hours apart will meet criteria for gestational hypertension Admission and Anticipated Discharge Date Admission Date: July 01, 2021 Physical Exam Physical Exam: FHT:baseline 140, mod variability, +accels, no decles, cat I [place]:q 10 min Results & Data ([facility]) Vital Signs (Past 12 Hours) Vital Signs Temp Pulse Resp BP Pulse Ox 07/01/21 16:44 85 96 07/01/21 16:43 93 H 113/71 07/01/21 16:39 82 97 07/01/21 16:38 75 120/67 07/01/21 16:35 94 H 143/60 H 07/01/21 16:34 96 H 97 07/01/21 16:29 94 H 98 07/01/21 16:28 97 H 111/67 07/01/21 16:24 91 H 98 07/01/21 16:23 79 117/71 07/01/21 16:19 94 H 96 07/01/21 16:18 86 110/70 07/01/21 16:14 86 96 07/01/21 16:13 81 109/65 07/01/21 16:11 102 H 105/64 07/01/21 16:09 98 H 97 07/01/21 16:04 85 110/60 97 07/01/21 15:59 97 H 98 07/01/21 15:58 86 123/68 07/01/21 15:54 92 H 98 07/01/21 15:52 93 H 118/66 07/01/21 15:50 87 118/61 07/01/21 15:49 96 H 98 07/01/21 15:48 93 H 121/68 07/01/21 15:46 92 H 129/72 07/01/21 15:44 84 128/71 98 07/01/21 15:43 82 132/73 07/01/21 15:39 95 H 99 07/01/21 15:34 101 H 99 07/01/21 15:29 100 H 100 07/01/21 15:28 98 H 90 07/01/21 15:24 89 98 07/01/21 15:19 94 H 98 07/01/21 14:55 136/83 07/01/21 14:54 36.6 C 20 07/01/21 14:34 96 H 127/80 07/01/21 13:23 37.0 C 96 H 20 139/81 07/01/21 11:59 88 135/74 07/01/21 11:42 78 131/80 07/01/21 11:27 88 129/78 07/01/21 11:14 84 141/86 H 07/01/21 10:57 90 126/79 07/01/21 10:42 103 H 130/88 07/01/21 10:28 100 H 132/87 07/01/21 10:13 93 H 138/91 07/01/21 09:56 37 C 22 07/01/21 09:46 96 H 156/90 H
[2021-07-01] MEDS ORDERED: ACETAMINOPHEN 325 MG TAB PO PRN (18:07)
[2021-07-01] MEDS ORDERED: DIPHTHERIA/TETANUS/PERTUSSIS 0.5 ML SYR/VIAL IM ONE (18:07)
[2021-07-01] MEDS ORDERED: HYDROCORTISONE ACETATE 25 MG SUPP PR PRN (18:07)
[2021-07-01] MEDS ORDERED: bisacodyL 10 MG SUPP PR PRN (18:07)
--- NOTE | 2021-07-01 18:13 | Delivery Summary ---
Vaginal Delivery Summary Date of Service July 01, 2021 Vaginal Delivery Summary Delivery Note History synopsis: Patient is a 30-year-old -0-0-1 at 38 weeks and 6 7 days who presented for contractions. She is found to be in early labor and she changed from 3 to 4 cm within 1 hour. Contractions were painful and patient desired an epidural. Labor Course: After patient was admitted she is found to be unchanged from 4 cm, AROM was performed and patient received an epidural for pain control. Started oxytocin for hypotonic uterine contractions. Called by nursing as patient was noted to be when they went to [facility] cath the patient at approximately 1745. During admission she was on an insulin drip for control of her insulin controlled GDM. Delivery Summary: Patient was placed in the dorsal lithotomy position. She was prepped and draped in the usual sterile fashion. Upon maternal pushing the head was delivered atraumatically followed by the anterior shoulders, posterior shoulders then the remainder of the infants body. The infants mouth and nose were bulb suction below the level of the perineum. A male infant was delivered at 1753, weight pending with APGARS of 8 at 1 minute and 9 at 5 minutes. The umbilical cord was clamped times two and cut after 60 sec of delayed cord clamping. The infant was handed off to the awaiting pediatric staff. Cord blood was obtained. The placenta delivered intact with three vessel cord at 1756. Placenta was sent to pathology. Thirty units of Pitocin were added to the IV fluid and allowed to run freely. Uterine massage was performed until uterus was deemed firm. Upon inspection of the perineum, cervix were intact. Noted periurethral laceration that was hemostatic. Second degree laceration was noted which was repaired with 3-0 Vicryl in the usual fashion. Upon re-inspection the patient was hemostatic. Uterus again massaged and found to be firm. Needle and sponge counts were correct. Patient was stable and allowed to recover in L&D room. Infant was stable and remained in room with mother in the Family Care Unit. EBL 300mls
--- NOTE | 2021-07-01 18:33 | Anesthesia Procedure Note ---
Date of Service July 01, 2021 Anesthesia Post Epidural Note Vital Signs Vital Signs: Temp Pulse Resp BP Pulse Ox 36.7 C 85 18 117/79 94 07/01/21 16:45 07/01/21 18:08 07/01/21 17:30 07/01/21 18:23 07/01/21 17:56 Notes Mental Status: alert / awake / arousable and participated in evaluation Nausea / Vomiting: adequately controlled Pain: adequately controlled Airway Patency, RR, SpO2: stable & adequate BP & HR: stable & adequate Hydration State: stable & adequate Neuraxial Anesthesia: was administered and sensory block is resolving Anesthetic Complications: no major complications apparent Epidural: Removed without complications and With tip intact
[2021-07-01] MEDS: BENZOCAINE 20% AER SPR 82.5 GM CAN EXT PRN (22:19)
[2021-07-01] MEDS: IBUPROFEN 600 MG TAB PO PRN (23:21)
[2021-07-01] MEDS: DOCUSATE SODIUM 100 MG CAP PO SCH (23:22)
[2021-07-02] MEDS: IBUPROFEN 600 MG TAB PO PRN ×3 (03:26→16:40)
[2021-07-02 06:52] LABS: Hematocrit (blood only) 33.3 % (37-47); Hemoglobin 11.4 g/dL (12.0-16.0); Mean Corpuscular Hemoglobin 30.4 pg (25-34); Mean Corpuscular Hgb Conc 34.2 g/dL (32-36); Mean Corpuscular Volume 88.8 fL (80-100); Mean Platelet Volume 12.5 fL (7.4-10.4); Platelet Count 117 K/uL (130-400); RDW Coefficient of Variation 12.8 % (11.5-14.5); RDW Standard Deviation 41.3 fL (36.4-46.3); Red Blood Count 3.75 M/uL (4.2-5.4); White Blood Count 8.08 K/uL (4.8-10.8)
[2021-07-02 06:53] LABS: Platelet Estimate Decreased (Normal)
[2021-07-02] MEDS ORDERED: PRENATAL VITAMIN 1 TAB PO SCH (08:00)
[2021-07-02] MEDS ORDERED: FERROUS SULFATE 325 MG TAB PO SCH (08:00)
[2021-07-02] MEDS: DOCUSATE SODIUM 100 MG CAP PO SCH (08:48)
[2021-07-02] MEDS: BENZOCAINE 20% AER SPR 82.5 GM CAN EXT PRN (09:00)
--- NOTE | 2021-07-02 10:15 | Obstetrical Progress Note ---
Date of Service July 02, 2021 Subjective Ambulation: ambulating normally Voiding: no voiding problems Passing Gas:: Yes Diet Tolerance:: regular diet Lochia:: Small Feeding Type:: breast feeding Current Pain Level(1-10): 0 doing well plans for d/c Physical Exam Constitutional WD/WN, vitals as above abdomen soft no edema neg Leonila's for d/c Results & Data ([facility]) Vital Signs (Past 12 Hours) Vital Signs Temp Pulse Resp BP Pulse Ox 07/02/21 08:15 36.6 C 71 18 129/84 97 07/02/21 03:20 36.7 C 85 16 118/76 95 07/01/21 23:12 36.7 C 89 16 114/76 98 Laboratory Results 07/01/21 07/01/21 07/01/21 10:13 10:13 10:16 WBC 8.87 RBC 4.15 L Hgb 13.2 Hct 36.3 L MCV 87.5 MCH 31.8 MCHC 36.4 H RDW Std Deviation 41.1 RDW Coeff of Mago 12.8 Plt Count 133 MPV 12.9 H Immature Gran % (Auto) 0.2 Neut % (Auto) 75.5 Lymph % (Auto) 18.7 [place] % (Auto) 5.3 Eos % (Auto) 0.2 Baso % (Auto) 0.1 Neut # (Auto) 6.69 H Lymph # (Auto) 1.66 [place] # (Auto) 0.47 Eos # (Auto) 0.02 Baso # (Auto) 0.01 Immature Gran # (Auto) 0.02 Platelet Estimate Sodium 135 L Potassium 4.0 Chloride 106 Carbon Dioxide 19 L Anion Gap 10 BUN 23 Creatinine 0.91 Est Cr Clr Drug Dosing 119.0 Est GFR ( Amer) 98.8 Est GFR (Non-Af Amer) 85.3 BUN/Creatinine Ratio 25.3 H Glucose 147 H POC Glucose Calcium 9.2 Total Bilirubin 0.2 AST 13 ALT 15 Alkaline Phosphatase 107 H Total Protein 6.3 Albumin 3.4 Globulin 2.9 Albumin/Globulin Ratio 1.2 Ur Random Creatinine U Random Total Protein Protein/Creatinin Ratio SARS-CoV-2, RNA, NAAT Blood Type B Positive Antibody Screen NEGATIVE 07/01/21 07/01/21 07/01/21 12:35 13:15 14:15 WBC RBC Hgb Hct MCV MCH MCHC RDW Std Deviation RDW Coeff of Mago Plt Count MPV Immature Gran % (Auto) Neut % (Auto) Lymph % (Auto) [place] % (Auto) Eos % (Auto) Baso % (Auto) Neut # (Auto) Lymph # (Auto) [place] # (Auto) Eos # (Auto) Baso # (Auto) Immature Gran # (Auto) Platelet Estimate Sodium Potassium Chloride Carbon Dioxide Anion Gap BUN Creatinine Est Cr Clr Drug Dosing Est GFR ( Amer) Est GFR (Non-Af Amer) BUN/Creatinine Ratio Glucose POC Glucose 145 H 142 H 119 H Calcium Total Bilirubin AST ALT Alkaline Phosphatase Total Protein Albumin Globulin Albumin/Globulin Ratio Ur Random Creatinine U Random Total Protein Protein/Creatinin Ratio SARS-CoV-2, RNA, NAAT Blood Type Antibody Screen 07/01/21 07/01/21 07/01/21 15:13 16:16 17:16 WBC RBC Hgb Hct MCV MCH MCHC RDW Std Deviation RDW Coeff of Mago Plt Count MPV Immature Gran % (Auto) Neut % (Auto) Lymph % (Auto) [place] % (Auto) Eos % (Auto) Baso % (Auto) Neut # (Auto) Lymph # (Auto) [place] # (Auto) Eos # (Auto) Baso # (Auto) Immature Gran # (Auto) Platelet Estimate Sodium Potassium Chloride Carbon Dioxide Anion Gap BUN Creatinine Est Cr Clr Drug Dosing Est GFR ( Amer) Est GFR (Non-Af Amer) BUN/Creatinine Ratio Glucose POC Glucose 113 H 91 87 Calcium Total Bilirubin AST ALT Alkaline Phosphatase Total Protein Albumin Globulin Albumin/Globulin Ratio Ur Random Creatinine U Random Total Protein Protein/Creatinin Ratio SARS-CoV-2, RNA, NAAT Blood Type Antibody Screen 07/01/21 07/01/21 07/02/21 Unknown Unknown 05:47 WBC 8.08 RBC 3.75 L Hgb 11.4 L Hct 33.3 L MCV 88.8 MCH 30.4 MCHC 34.2 RDW Std Deviation 41.3 RDW Coeff of Mago 12.8 Plt Count 117 L MPV 12.5 H Immature Gran % (Auto) Neut % (Auto) Lymph % (Auto) [place] % (Auto) Eos % (Auto) Baso % (Auto) Neut # (Auto) Lymph # (Auto) [place] # (Auto) Eos # (Auto) Baso # (Auto) Immature Gran # (Auto) Platelet Estimate Decreased L Sodium Potassium Chloride Carbon Dioxide Anion Gap BUN Creatinine Est Cr Clr Drug Dosing Est GFR ( Amer) Est GFR (Non-Af Amer) BUN/Creatinine Ratio Glucose POC Glucose Calcium Total Bilirubin AST ALT Alkaline Phosphatase Total Protein Albumin Globulin Albumin/Globulin Ratio Ur Random Creatinine 144.0 U Random Total Protein 24.1 H Protein/Creatinin Ratio 0.2 SARS-CoV-2, RNA, NAAT NEGATIVE Blood Type Antibody Screen
[2021-07-02] MEDS ORDERED: bisacodyL 5 MG TABEC PO SCH (20:00)
== END 2021-07-02 21:00 | disposition home or self-care (01) | DRG 807 ==
LOC: OPB 09:37 → 4S1 09:40 → 4E2 21:09
DX: Z79.899 Other long term (current) drug therapy; Z37.0 Single live birth; Z79.4 Long term (current) use of insulin; Z20.822 Contact with and (suspected) exposure to COVID-19; O99.892 Other specified diseases and conditions complicating childbirth; Z91.048 Other nonmedicinal substance allergy status; E66.09 Other obesity due to excess calories; O62.2 Other uterine inertia; O99.214 Obesity complicating childbirth; Z87.891 Personal history of nicotine dependence; Z3A.38 38 weeks gestation of pregnancy; Z86.14 Personal history of Methicillin resistant Staphylococcus aureus infection; R03.0 Elevated blood-pressure reading, without diagnosis of hypertension; O24.424 Gestational diabetes mellitus in childbirth, insulin controlled